=== PATIENT | male | born 1935 | race Caucasian/White ===

== ENCOUNTER 2019-06-17 10:03 | Outpatient (CLI) | payer MEDICARE | END 2019-06-17 23:59 | disposition home or self-care (01) | LOC: LAB 10:03 | PROVIDERS: ATTEND Psychiatry & Neurology Child & Adolescent Psychiatry | DX: C94.6 Myelodysplastic disease, not elsewhere classified (principal); G61.81 Chronic inflammatory demyelinating polyneuritis | CPT/HCPCS: 36415; 82784; 83520; 84155; 84165; 86334 ==